=== PATIENT | female | born 1995 | race Caucasian/White ===

== ENCOUNTER 2019-12-12 11:35 | Emergency (ER) | payer MEDICAID ==
[~2019-12-12] VITALS: Ht 162.6 cm; Wt 52.2 kg
[2019-12-12 11:39] VITALS: BP 112/71
--- NOTE | 2019-12-12 11:46 | ER.PDOC ---
General Chief Complaint: Requesting Medical Care Stated Complaint: CP,SOB Time seen by MD: 11:45 Source: patient Exam Limitations: no limitations History of Present Illness Initial Comments patient c/o 2 days of chest heaviness + subjective fever; sx mimic those of previous pneumonia (2 months ago); she denies cough or SOB Timing/Duration: gradual Severity: mild Associated Symptoms: fever/chills (subjective), sore throat, mild SOB, hurts to breath Worsen By: deep breathing Prior symptoms/Treatment: Similar symptoms previous Allergies: Coded Allergies: Penicillins (Verified Allergy, Unknown, Anaphylaxis Shock, 12/12/19) ceftriaxone (Verified Allergy, Unknown, 12/12/19) Constitutional: fever (subjective) EENTM: throat pain Respiratory: shortness of breath Cardiovascular: no symptoms reported Gastrointestinal: no symptoms reported Musculoskeletal: no symptoms reported Skin: no symptoms reported Past Medical History Medical History: asthma Social History Smoking: other (occasional vaping) Physical Exam General Appearance: alert, no distress Respiratory: no resp.distress, breath sounds nml Abdomen: non-tender CVS: reg rate & rhythm, heart sounds nml Skin: color nml, no rash, warm/dry Extremities: non-tender, no pedal edema, calf tenderness NEURO/PSYCH: mood/affect nml Results/Orders Results/Orders Orders - JOSE M HEWITT DO Influenza A&B (12/12/19 11:56) Strep Screen (12/12/19 11:56) Xr Chest 2v (12/12/19 11:56) Vital Signs Date Time Temp Pulse Resp B/P (MAP) Pulse Ox O2 Delivery O2 Flow Rate FiO2 12/12/19 11:39 99.5 85 18 12/12/19 11:39 99.5 85 18 97 12/12/19 11:39 99.5 85 18 97 Room Air Laboratory Tests Test 12/12/19 12:00 Influenza Type A Antigen NEGATIVE (NEG) Influenza B Immunofluorescence NEGATIVE (NEG) Group A Streptococcus Screen NEGATIVE (NEGATIVE) EKG/XRAY/CT/US EKG: NSR, no ST T wave changes XRAY: chest (normal) Departure Time of Disposition: 12:43 Disposition: 01 HOME, SELF-CARE Impression: Primary Impression: Upper respiratory infection, acute Condition: Stable Patient Instructions: Upper Respiratory Infection, Adult Referrals: NIXON GRUBER MD (PCP) PRIMARY CARE PROVIDER Additional Instructions: Take antibiotic until all gone as directed. Return to ER if you have difficulty breathing or any other emergent concerns. Use inhaler per package instructions as needed. Duration or Time Spent with Pa: 15 min JOSE M HEWITT DO Dec 12, 2019 11:46
--- NOTE | 2019-12-12 12:25 | DIREP ---
PROCEDURE:CHEST 2 VIEWS COMPARISON:[facility] , CHEST 2 VIEW, 07/19/2014, 11:45 AM. INDICATIONS:dyspnea FINDINGS: LUNGS/PLEURA:No significant pulmonary parenchymal abnormalities. No effusions. VASCULATURE:Normal. Unremarkable pulmonary vasculature. CARDIAC:Normal. No cardiac silhouette abnormality or cardiomegaly. MEDIASTINUM:Normal. No visible mass or adenopathy. BONES:Normal. No fracture or visible bony lesion. OTHER:Negative. CONCLUSION:Normal chest examination. Dictated by: Fernando Christianson M.D. on 12/12/2019 at 12:27 PM
[2019-12-12 12:48] VITALS: BP 108/57
--- NOTE | 2019-12-12 13:25 | PCM.EKG ---
[facility] Test Date: 2019-12-12 Test Time: 11:38:49 Pat Name: SHAN COTTON Department: [id number] Room: Gender: F Lead Oracle Developer: RT : 1995 Requested By: JOSE M LEVY Order Number: [id number] Reading MD: Tarsha Levy Measurements Intervals [place] Rate: 96 P: 62 [place]: 120 QRS: 22 QRSD: 96 T: 16 QT: 345 QTc: 436 Interpretive Statements Sinus rhythm Probable left atrial enlargement RSR' in V1 or V2, probably normal variant Borderline T abnormalities, anterior leads Baseline wander in lead(s) V2 No previous ECG available for comparison Electronically Signed On 12-14-2019 19:39:20 CDT by Tarsha Levy Please click the below link to view image of tracing.
== END 2019-12-12 12:55 | disposition home or self-care (01) ==
LOC: ER 11:35
DX: J06.9 Acute upper respiratory infection, unspecified (principal); F17.210 Nicotine dependence, cigarettes, uncomplicated
CPT/HCPCS: 71046; 87070; 87804; 87880; 93005; 99285